=== PATIENT | male | born 1970 | race Caucasian/White ===

== ENCOUNTER 2019-04-22 15:33 | Outpatient (CLI) | payer OTHER ==
--- NOTE | 2019-04-22 16:06 | ULT ---
BILATERAL RENAL ULTRASOUND: HISTORY: Chronic renal disease FINDINGS: The right kidney measures 10.2 cm in length and the left kidney measures 11.3 cm in length. No focal mass or hydronephrosis is seen on either side. Cortical echogenicity and thickness is normal. No shadowing calculi are identified. The urinary bladder is well distended and normal with a volume of 4 30 cc. IMPRESSION: Normal exam
== END 2019-04-22 15:34 | disposition home or self-care (01) ==
LOC: BICULT 15:33
PROVIDERS: ATTEND Family Medicine
DX: N18.3 Chronic kidney disease, stage 3 (moderate) (principal)
CPT/HCPCS: 76770

== ENCOUNTER 2021-05-11 08:14 | Outpatient (CLI) | payer OTHER | END 2021-05-11 08:15 | disposition home or self-care (01) | LOC: BICRAD 08:14 | PROVIDERS: ATTEND Family Medicine | DX: R07.9 Chest pain, unspecified (principal) | CPT/HCPCS: 71046 ==

== ENCOUNTER 2021-05-15 10:58 | Outpatient (CLI) | payer OTHER ==
[2021-05-15] MEDS ORDERED: Iopamidol 370 76% 100 ML VIAL ONE (16:08)
== END 2021-05-15 10:59 | disposition home or self-care (01) ==
LOC: CT 10:58
PROVIDERS: ATTEND Physician Assistant
DX: R10.9 Unspecified abdominal pain (principal); K57.32 Diverticulitis of large intestine without perforation or abscess without bleeding; M47.816 Spondylosis without myelopathy or radiculopathy, lumbar region; M51.36 Other intervertebral disc degeneration, lumbar region
CPT/HCPCS: 71260; 74177; 82565